=== PATIENT | female | born 1965 | race Caucasian/White ===

== ENCOUNTER 2021-06-09 14:19 | Outpatient (REF) | payer MEDICAID, SELFPAY ==
--- NOTE | 2021-06-09 14:31 | ECG_ITS ---
Test Reason : med therapy, r/o prolong qt Blood Pressure : / mmHG Vent. Rate : 057 BPM Atrial Rate : 057 BPM P-R Int : 166 ms QRS Dur : 082 ms QT Int : 440 ms P-R-T Axes : 011 -03 028 degrees QTc Int : 428 ms Sinus bradycardia Low voltage QRS Cannot r/o Inferior infarct , age undetermined - could be normal variant Cannot rule out Anterior infarct , age undetermined - could be from lead placement/body habitus Borderline ECG No previous ECGs available Referred By: Sindi Hernandez Electronically Signed By:ALKA GRAHAM
[2021-06-09 15:37] LABS: Anion Gap 13 (12-20); Blood Urea Nitrogen 17 mg/dL (9-16); Calcium 9.8 mg/dL (8.4-10.2); Carbon Dioxide 26 mmol/L (22-29); Chloride 106 mmol/L (96-108); Estimated Glomerular Filt Rate 45; Glucose Random 62 mg/dL (60-115); Potassium 4.2 mmol/L (3.3-5.1); Sodium 141 mmol/L (135-145)
[2021-06-09 15:40] LABS: Amphetamine Screen Urine Not Detected (Not Detect); Barbiturates, Urine Not Detected (Not Detect); Benzodiazepines Screen Urine POSITIVE (Not Detect); Cannabinoid Screen Urine Not Detected (Not Detect); Cocaine Screen Urine Not Detected (Not Detect); Fentanyl, urine Not Detected (Not Detect); Opiate Screen Urine Not Detected (Not Detect); Phencyclidine Screen Urine Not Detected (Not Detect)
== END 2021-06-09 14:20 | disposition home or self-care (01) ==
LOC: HO.LAB 14:19
PROVIDERS: PCP Nurse Practitioner Family; Visit Provider Nurse Practitioner Psychiatric/Mental Health
DX: F41.1 Generalized anxiety disorder (principal); F33.2 Major depressive disorder, recurrent severe without psychotic features
CPT/HCPCS: 80048; 80307; 93005

== ENCOUNTER 2021-06-22 10:45 | Outpatient (RCR) | payer OTHER, SELFPAY ==
[2021-06-01 11:22] VITALS: BMI 27.4
--- NOTE | 2021-06-01 11:47 | PC.ADMIT ---
Patient is a 56 year old female who was referred by [facility] Crisis d/t struggling with increased depression and anxiety sxs. 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 Patient is alert and oriented x4. Presents with depressed mood, very anxious affect. Denied SI. Asked who she could call if she felt unsafe and she stated her therapist. Patient has the crisis number if needed. Medication reconciled with patient's phamracy and patient. Patient reports taking medications as prescribed.
--- NOTE | 2021-06-01 14:56 | PC.NURSE ---
Case opened in treatment team
--- NOTE | 2021-06-01 15:37 | P.HPPSP_ITS ---
[facility] Date of Service: 06/01/21 Chief Complaint: Major Depressive D/o, Generalized Anxiety D/o Sources of Information: patient interviewed, chart reviewed and crisis/core team assessment reviewed [facility] Guardianship: No Medical Problems Affecting Mental Status: No Narrative: Ms. Lopez is a 56-year-old female referred to [facility] by [facility] crisis due to increased symptoms of anxiety and depression. She lives with a s ignificant other, and has 1 adult daughter that lives in [place]. She describes relationships with them as supportive. She describes a precipitant as losing a job this past month, on her birthday. She reports a long history of anxiety and depression, and states that she started seeing a therapist around the age of 17-18. She states that she has been in therapy ever since that time, with various therapists over the years. Medication Trials: Reports multiple medication trials over the years, does not remember the names of most medications. Ativan in the past with poor effect. Xanax in the past with poor effect. Wellbutrin for a while, but that stopped working. Trazodone years ago for sleep. Grew up with both parents and 4 brothers, she was the 4th oldest. Reports there was a lot of tension and financial problems in the household as a child. Describes her relationship with her siblings at this time as supportive. Reports that she met developmental milestones as appropriate, graduated high school, community college, and then received her bachelor's degree. Denies any symptoms of bipolar disorder. Endorses symptoms of depression including feeling sad, and only a, tearful at times, hopelessness, helplessness, guilt, anxiety. She has had multiple psychiatric admissions and previous suicide attempts by overdose and cutting. She denies any suicidal ideation today. Client reports that she has suffered from alcohol use disorder for many years, with various amounts of sobriety throughout the years. She reports that currently she has been sober for 5 years. She reports she has a strong support network in , and attends meetings. She is hoping to gain new coping skills while in [facility], and is willing to discuss possible medication changes. Past Psychiatric History: Has psychiatric provider, Zeina Rojas, CLINICAL RESOURCE COORDINATOR Has therapist, Miah Hodges. Two previous IPLOC due to SI attempts. Multiple PHP programs in past. Several DUIs in past. Medical Evaluation Reviewed: Yes [facility] Medical History Back spasm Chronic urinary tract infection History of kidney stones Perforated ulcer Ureteral reflux Surgical History History of delivery Family History: Maternal grandmother: Delusional disorder, sectioned to [facility]. Paternal grandmother: Bipolar I disorder. Father: Depression, possible PTSD (from war). Brother: Multiple SI attempts with alcohol and pills, AUD, currently sober. Social History: Raised by both parents, has 4 brothers. Reports poverty as a child, tense household. Currently unemployed. Lives with significant other of 3 years. One adult daughter, lives out of home. Met all developmental milestones, graduated high school, associated degree, bachelor degree. Substance History: Longstanding history of alcohol use disorder with relapses. Currently sober x5 years, active in AA. Trauma History: None Diagnostics Vital Signs (24Hr): Body Mass Index 27.4 Meds/Allergies Allergies Allergies Allergy/AdvReac Type Severity Reaction Status Date / Time sulfamethoxazole Allergy Unknown Verified 06/01/21 11:26 [From Bactrim] trimethoprim [From Bactrim] Allergy Unknown Verified 06/01/21 11:26 Mental Status Exam Mental Status Exam Narrative: Well-developed, well-nourished female, in NAD. No involuntary movements noted, motor activity calm, posture within normal limits. Fully attentive during encounter. Patient Appearance: Well Grooomed, Fatigued and Appropriate Patient Orientation: Person, Place, Time and Situation Level of Consciousness: Awake, Appropriate and Alert Patient Behavior: Appropriate, Cooperative, Anxious, Good Eye Contact and Crying (tearful at times) Mood Description: Appropriate, Depressed and Anxious Affect Description: Appropriate, Depressed, Anxious, Labile and Sad Ability to Follow Directions: Excellent Speech Pattern: Clear, Spontaneous Speech and Coherent Memory Description: Intact Hallucinations: None Delusions: Not Present Thought Process: Intact, Goal Oriented and Linear Thought Content: positive for Intact, positive for Preoccupation (Highly focused on feel signs of anxiety, feeling overwhelmed.) and positive for Suicidal Ideation (Has had recent SI, denies today. ) Depressive Symptoms: Increased Anxiety, Diff. Making Decisions, Increased Irri tability, Difficulty Sleeping (difficulty falling asleep), Muscle Pain, Sleeping More Than Usual, Loss of Int. in Activity, Feelings of Worthlessness, Hopelessness, Isolating-Friends/Family, Feelings of Guilt, Unhappiness, Increased Fatigue, Thoughts of /Suicide, Low Self Esteem, Loss of Energy and Difficulty Concentrating Judgement: Fair Telehealth Telehealth Location of provider rendering services: practice address Location of patient: address on file Patient Identification confirmed using: Name, : Yes Telehealth method: video Patient verbally consented to treatment: Yes Patient verbally consented to billing insurance company: Yes Patient informed of any privacy concerns related to visit: Yes Time spent with patient (mins): 45 Assessment & Plan Assessment & Plan (1) Major depressive disorder, recurrent, severe without psychotic features: Status: Acute Code(s): F33.2 - Major depressive disorder, recurrent severe without psychotic features Assessment and Plan: Client reports a longstanding history of major depressive disorder, 1st experiencing symptoms in [employer]. Attributes recent life stressors to exacerbation of symptoms over the past month. Denies SI at this time, no safety concern at this time. Client currently receives duloxetine 120 mg daily, as well as Seroquel 300 mg at bedtime. She believes these are helping, although she is feeling overwhelmed recently. She hopes to gain a sense of control and learn new coping skills while here. (2) MATTHEW (generalized anxiety disorder): Status: Acute Code(s): F41.1 - Generalized anxiety disorder Assessment and Plan: Client reports feeling overwhelmed, believes that her symptoms of anxiety are not being well managed at this point. She does utilize the propanolol as well as the Klonopin. We discussed other medication options, including adding p.r.n. Vistaril. She stated that she would be interested. (3) Alcohol use disorder, severe, in sustained remission: Status: Acute Code(s): F10.21 - Alcohol dependence, in remission Assessment and Plan: Client reports that she feels stable in her recovery from alcohol use at this time. She is active in a 12 step program, and attends regular meetings. She does not feel the need for any type of medication in order to assist with cravings at this time, as she feels stable. Assessment and Plan: 1. Obtain general Chem profile, PAZ, EKG. 2. Start hydroxyzine 50 mg 4 times daily p.r.n. for anxiety. One-week supply sent to pharmacy. 3. Follow-up as per protocol. Reason for continued partial hosp. stay Substantial Risk for: harm to self, inability to function and med/psych decompensation Certification I certify that partial hospital treatment is medically necessary due to the symptoms and problems resulting from the patient's mental illness and the failure to treat the patient at the partial hospital level of care would likely result in the patient requiring inpatient psychiatric care which could not be prevented at a less intensive level of care.
--- NOTE | 2021-06-08 13:38 | HO.PHPPROGNO ---
Subjective Subjective Date of Service: 06/08/21 Reason For Visit: Major Depressive D/o, Generalized Anxiety D/o Guardianship: No Medical Problems Affecting Mental Status: No Interim History: Ronit reports ?I am all right, I guess just pretty neutral today ?. Denies any thought of harm to self or others, no safety concern. Reports positive affect utilizing p.r.n. hydroxyzine for anxiety. Denied any side effects regarding the medication. Has not yet obtained lab work and EKG. Reports ongoing depressive symptoms, anxiety, although anxiety lessened with hydroxyzine. Ongoing alcohol use in remission. Medication Compliance: Yes Side effects from medications: No Attending Groups: Yes Review of Systems Acute medical concerns: No Medical Review of Systems: unchanged Review of Systems Review of Systems Yes all other systems are reviewed and are negative Constitutional: Reports no additional constitutional complaints Mental Status Exam Mental Status Exam Narrative: Well-developed, well-nourished female, in NAD. No involuntary movements noted, motor activity calm, posture within normal limits. Sitting up in chair, fully alert and attentive. Patient Appearance: Well Grooomed and Appropriate Patient Orientation: Person, Place, Time and Situation Level of Consciousness: Appropriate and Alert Patient Behavior: Appropriate, Cooperative, Anxious and Good Eye Contact Mood Description: Appropriate, Depressed and Anxious Affect Description: Appropriate, Depressed and Anxious (improved from last encounter, although still present.) Patient Cognition Impaired: No Ability to Follow Directions: Excellent Speech Pattern: Clear, Appropriate, Spontaneous Speech and Coherent Memory Description: Intact Hallucinations: None Delusions: Not Present Thought Process: Intact, Goal Oriented and Linear Thought Content: positive for Intact Depressive Symptoms: Increased Anxiety, Diff. Making Decisions, Muscle Pain, Loss of Int. in Activity, Feelings of Worthlessness, Hopelessness, Feelings of Guilt, Unhappiness, Increased Fatigue, Low Self Esteem, Loss of Energy and Difficulty Concentrating Judgement: Fair Diagnostics Vital Signs (24Hr): BMI result Body Mass Index 27.4 Assessment & Plan Assessment & Plan (1) Major depressive disorder, recurrent, severe without psychotic features: Status: Acute Code(s): F33.2 - Major depressive disorder, recurrent severe without psychotic features Assessment and Plan: Ronit reports ?I am all right, I guess just pretty neutral today ?. Denies any thought of harm to self or others, no safety concern. Continues with dysphoric mood. Taking prescribed antidepressants as ordered. (2) MATTHEW (generalized anxiety disorder): Status: Acute Code(s): F41.1 - Generalized anxiety disorder Assessment and Plan: Reports positive affect utilizing p.r.n. hydroxyzine for anxiety. Denied any side effects regarding the medication. Reports ongoing depressive symptoms, anxiety, although anxiety lessened with hydroxyzine. Describes having a difficult holiday with significant others family. Requesting new script for hydroxyzine. Has not yet obtained lab work and EKG. It was explained that hydroxyzine and Seroquel can both act to prolonged QTC interval, necessary to obtain a baseline EKG as well as labs. She was in agreement and stated that she will do this. (3) Alcohol use disorder, severe, in sustained remission: Status: Acute Code(s): F10.21 - Alcohol dependence, in remission Assessment and Plan: Kita denies any drinking over the holiday weekend. Reports it was difficult to be around her significant other's family as many of them drink. She states that most of her friends are in alcoholics anonymous, and that she called a friend and went to multiple meetings over the holiday weekend. She reports that this was extremely helpful for her. Assessment and Plan: 1. Hydroxyzine 50 mg q.i.d. p.r.n. for anxiety ordered, x1 week. 2. Client was asked to please obtain EKG as well as ordered labs, she stated that she would do so. 3. Follow-up as per protocol. Patient educated on: diagnosis, medication risk/benefits, substance abuse and therapeutic strategies Informed Consent: understands Reason for contiued partial hosp. stay Substantial Risk for: inability to function and med/psych decompensation Certification I certify that partial hospital treatment is medically necessary due to the symptoms and problems resulting from the patient's mental illness and the failure to treat the patient at the partial hospital level of care would likely result in the patient requiring inpatient psychiatric care which could not be prevented at a less intensive level of care. I spent minutes with the patient and/or on the patient floor today, greater than?50% of which was spent counseling/coordinating care. Discharge Plan Discharge Attending provider: Richie Hull Primary Care Provider: Lynette Gabriel Medications: New hydroxyzine pamoate [Vistaril] 50 mg capsule 50 mg PO QID PRN (Reason: anxiety) 7 Days Qty: 28 RF: 0 No Action quetiapine [Seroquel] 300 mg Tablet 300 mg PO BEDTIME RF: 0 clonazepam 1 mg Tablet 1 mg PO TID PRN (Reason: Anxiety) RF: 0 methenamine hippurate 1 gram Tablet 1 g PO BID RF: 0 propranolol 20 mg Tablet 20 mg PO TID RF: 0 duloxetine 60 mg Capsule,Delayed Release(Dr/Ec) 120 mg PO DAILY RF: 0 Referrals: Lynette Gabriel NP [Primary Care Provider] - 1 Week Telehealth Telehealth Location of provider rendering services: practice address Location of patient: address on file Patient Identification confirmed using: Name, : Yes Telehealth method: video Patient verbally consented to treatment: Yes Patient verbally consented to billing insurance company: Yes Patient informed of any privacy concerns related to visit: Yes Time spent with patient (mins): 20
--- NOTE | 2021-06-14 11:00 | PC.NURSE ---
Faxed patient's abnormal lab and EKG results to patient's PCP Lynette Gabriel on 06/13/21 to review and request f/u appointment if needed by PCP. EGFR 45, Bun 17. EKG results -Sinus Bradycardia, low voltage QRS Cannot r/o anterior/Inferior infarct age undetermined-could be a normal variant or caused by lead placement. Called Lynette Gabriel's office on 06/14/21 requesting to speak to a nurse to confirm that they received the results and to review results along with any necessary f/u appointment. Spoke to Tatum from the call center who relayed the message. Awaiting a call back from a nurse to f/u.
--- NOTE | 2021-06-15 15:34 | P.PNPSP_ITS ---
Subjective Subjective Date of Service: 06/15/21 Reason For Visit: Major Depressive D/o, Generalized Anxiety D/o Guardianship: No Medical Problems Affecting Mental Status: No Interim History: Client reports she ?is feeling a little anxious today ?. Also continues with some dysphoric mood, although symptoms of depression have improved somewhat. Client has been utilizing the p.r.n. Vistaril, and has found it helpful when feeling overwhelmed and anxious. She also continues with other scheduled medications, including Seroquel, propanolol, duloxetine, clonazepam, andmethenamine hippurate. Denies any side effects or adverse reactions. Client reports continues with some fleeting passive SI, although she now looks back at her plan to complete a suicide before coming into [facility], and states that she now knows that plan was ?ludicrous ?. Denies any type of plan or intent to harm herself, no safety concern at this time. Medication Compliance: Yes Side effects from medications: No Attending Groups: Yes Review of Systems Acute medical concerns: No Medical Review of Systems: unchanged Review of Systems Review of Systems Yes all other systems are reviewed and are negative Constitutional: Reports no additional constitutional complaints Mental Status Exam Mental Status Exam Narrative: Well-developed, well-nourished female, in NAD. No involuntary movements noted, motor activity calm, posture within normal limits. Patient Appearance: Well Grooomed and Appropriate Patient Orientation: Person, Place, Time and Situation Level of Consciousness: Appropriate and Alert Patient Behavior: Appropriate, Cooperative, Anxious and Good Eye Contact Mood Description: Appropriate, Depressed and Anxious Affect Description: Appropriate, Depressed and Anxious Patient Cognition Impaired: No Ability to Follow Directions: Excellent Speech Pattern: Clear, Appropriate, Spontaneous Speech and Coherent Memory Description: Intact Hallucinations: None Delusions: Not Present Thought Process: Intact, Goal Oriented and Linear Thought Content: positive for Intact and positive for Suicidal Ideation (fleeting passive, no intent/plan. Reports much improved since start of [facility]) Depressive Symptoms: Increased Anxiety, Diff. Making Decisions, Loss of Int. in Activity, Feelings of Worthlessness, Hopelessness, Isolating-Friends/Family, Feelings of Guilt, Unhappiness, Thoughts of /Suicide (fleeting passive at times, no intent/plan), Low Self Esteem, Loss of Energy and Difficulty Concentrating Judgement: Fair Diagnostics Vital Signs (24Hr): BMI result Body Mass Index 27.4 Assessment & Plan Assessment & Plan (1) Major depressive disorder, recurrent, severe without psychotic features: Status: Acute Code(s): F33.2 - Major depressive disorder, recurrent severe without psychotic features Assessment and Plan: Client continues with some dysphoric mood. Has had fleeting SI, no intent, no plan. No safety concern at this time. Reports looking back at her plans to to jump off a speedy prior to starting PHP. She states that she now sees at that plan was ?ludicrous ?, and that she would not harm herself. States that she feels current medication regimen is helping to improve mood, as well as daily participation in PHP. (2) MATTHEW (generalized anxiety disorder): Status: Acute Code(s): F41.1 - Generalized anxiety disorder Assessment and Plan: Client continues with some anxiety. Describes feeling nervous, on edge, unable to stop or control excessive worry. She has had trouble relaxing, with some restlessness, and irritability. She has been unable to exercise like she usually does, which has made her symptoms worse. She reports that her significant other had filed to have her evicted from the home, which caused her great distress. She later stated that he has informed her he will retracted, and that they have been attempting to work out their problems. She states that she has difficulty with interpersonal relationships, and is working on this. (3) Alcohol use disorder, severe, in sustained remission: Status: Acute Code(s): F10.21 - Alcohol dependence, in remission Assessment and Plan: Client reports she has continued to abstain from alcohol use. Reports that her recovery program is going well. She reports that she will be receiving her 5 year sobriety coin on 07/09/2021. Discussed using principles of the AA program in order to help assist with interpersonal relationships and coping. Assessment and Plan: 1. Continue current medication regimen as prescribed. 2. Refill of hydroxyzine 50 mg 4 times daily p.r.n. for anxiety, 30 day supply sent to pharmacy. 3. Follow-up as per protocol. Patient educated on: diagnosis, medication risk/benefits, substance abuse and therapeutic strategies Informed Consent: understands Reason for contiued partial hosp. stay Substantial Risk for: inability to function and med/psych decompensation Certification I certify that partial hospital treatment is medically necessary due to the symptoms and problems resulting from the patient's mental illness and the failure to treat the patient at the partial hospital level of care would likely result in the patient requiring inpatient psychiatric care which could not be prevented at a less intensive level of care. I spent minutes with the patient and/or on the patient floor today, greater than?50% of which was spent counseling/coordinating care. Discharge Plan Discharge Attending provider: Richie Hull Primary Care Provider: Lynette Gabriel Medications: New hydroxyzine pamoate [Vistaril] 50 mg capsule 50 mg PO QID PRN (Reason: anxiety) Qty: 120 RF: 0 No Action quetiapine [Seroquel] 300 mg Tablet 300 mg PO BEDTIME RF: 0 clonazepam 1 mg Tablet 1 mg PO TID PRN (Reason: Anxiety) RF: 0 methenamine hippurate 1 gram Tablet 1 g PO BID RF: 0 propranolol 20 mg Tablet 20 mg PO TID RF: 0 duloxetine 60 mg Capsule,Delayed Release(Dr/Ec) 120 mg PO DAILY RF: 0 Referrals: Lynette Gabriel, CMA OR LPN [Primary Care Provider] - 1 Week Telehealth Telehealth Location of provider rendering services: practice address Location of patient: address on file Patient Identification confirmed using: Name, : Yes Telehealth method: video Patient verbally consented to treatment: Yes Patient verbally consented to billing insurance company: Yes Patient informed of any privacy concerns related to visit: Yes Time spent with patient (mins): 15
--- NOTE | 2021-06-20 11:12 | PC.NURSE ---
Patient's PCP Lynette Gabriel NP left a message on my Voice Mail confirming she did get patients Lab and EKG results.
--- NOTE | 2021-06-22 09:46 | PC.NURSE ---
Patient scheduled to discharge fro the program today. Reviewed patient medications with patient. Patient reports taking medications as prescribed. Medication Education provided. Patient apprehensive regarding discharge however is going to try and take the skills she learned and implement them into daily routine. No Safety Concerns, No SI.
--- NOTE | 2021-06-22 13:20 | HO.PHPPROGNO ---
Subjective Subjective Date of Service: 06/22/21 Reason For Visit: Major Depressive D/o, Generalized Anxiety D/o Guardianship: No Medical Problems Affecting Mental Status: No Interim History: Reports feeling pretty anxious, a little shaky . Reports feeling anxious about finishing program today, wants to make sure she continues with structure in her day. No SI, no safety concerns. The continues to maintain abstinence regarding alcohol. Medication Compliance: Intermittent (Patient has been changing dosage schedule of medications. ) Side effects from medications: Yes ( shaky , she reports has been taking tid propanolol all in am daily) Attending Groups: Yes Review of Systems Acute medical concerns: No Medical Review of Systems: unchanged Review of Systems Review of Systems Yes all other systems are reviewed and are negative Constitutional: Reports no additional constitutional complaints Eyes: Reports no additional eye complaints Reports system reviewed and no additional complaints, except as documented Cardiovascular: Reports other (Reported feeling shaky.) Comments: Client reported that she has been taking all 3 doses of her propanolol in the mornings at once rather than spreading it out throughout the day as ordered. Respiratory: Reports no additional respiratory complaints Mental Status Exam Mental Status Exam Narrative: Well-developed, well-nourished female, in NAD. No involuntary movements noted, motor activity calm, posture within normal limits. Patient Appearance: Well Grooomed and Appropriate Patient Orientation: Person, Place, Time and Situation Level of Consciousness: Appropriate and Alert Patient Behavior: Appropriate, Cooperative, Anxious and Good Eye Contact Mood Description: Appropriate and Anxious Affect Description: Appropriate and Anxious Patient Cognition Impaired: No Ability to Follow Directions: Excellent Speech Pattern: Clear, Appropriate, Spontaneous Speech and Coherent Memory Description: Intact Hallucinations: None Delusions: Not Present Thought Process: Intact, Goal Oriented and Linear Thought Content: positive for Intact Depressive Symptoms: Increased Anxiety, Diff. Making Decisions, Loss of Int. in Activity, Unhappiness, Low Self Esteem and Difficulty Concentrating Judgement: Good Diagnostics Vital Signs (24Hr): BMI result Body Mass Index 27.4 Assessment & Plan Assessment & Plan (1) MATTHEW (generalized anxiety disorder): Status: Acute Code(s): F41.1 - Generalized anxiety disorder Assessment and Plan: Client continues with anxiety today. Reports that she believes it is because today is her last day, and she is worried about losing the daily structure. We discussed ways to continue structure in her daily day. She has plans with her mother tomorrow, and then will be going to visit her stay daughter in [place] on Sunday. She is active in 12 step groups, although not lately as much. We discussed getting more active in her groups, including doing Service work for them, etc., as a way to increase structure. She stated that she has been considering this, and may do so. Reports the p.r.n. hydroxyzine is working well. However, she reports that she has been taking it as 100 mg b.i.d. rather than 50 mg 4 times daily p.r.n.. She also reports that she has been taking propanolol 60 mg in the mornings rather than 20 mg t.i.d.. Education was provided, and patient was encouraged to take medications as prescribed. (2) Major depressive disorder, recurrent, severe without psychotic features: Status: Acute Code(s): F33.2 - Major depressive disorder, recurrent severe without psychotic features Assessment and Plan: Client reports depressive symptoms have improved while participating in [facility]. She states that today her main concern is anxiety. She states though that when she gets anxious for a long period of time, it slipped into a depressive state. We discussed relapse prevention strategies to help prevent this from happening. No SI, no safety concerns. (3) Alcohol use disorder, severe, in sustained remission: Status: Acute Code(s): F10.21 - Alcohol dependence, in remission Assessment and Plan: Client remains abstinent from alcohol. Denies any cravings at this time. States that she plans to get more active in 12 step recovery, including [facility] as well as AA. Assessment and Plan: 1. Client appears stable for discharge from [facility]. 2. Client to follow up with outpatient providers going forward. Patient educated on: diagnosis, medication risk/benefits, substance abuse and therapeutic strategies Informed Consent: understands Reason for contiued partial hosp. stay Substantial Risk for: stable for discharge Certification I certify that partial hospital treatment is medically necessary due to the symptoms and problems resulting from the patient's mental illness and the failure to treat the patient at the partial hospital level of care would likely result in the patient requiring inpatient psychiatric care which could not be prevented at a less intensive level of care. I spent minutes with the patient and/or on the patient floor today, greater than?50% of which was spent counseling/coordinating care. Discharge Plan Discharge Attending provider: Richie Hull Primary Care Provider: Lynette Gabriel Medications: New hydroxyzine pamoate [Vistaril] 50 mg capsule 50 mg PO QID PRN (Reason: anxiety) Qty: 120 RF: 0 No Action quetiapine [Seroquel] 300 mg Tablet 300 mg PO BEDTIME RF: 0 clonazepam 1 mg Tablet 1 mg PO TID PRN (Reason: Anxiety) RF: 0 methenamine hippurate 1 gram Tablet 1 g PO BID RF: 0 propranolol 20 mg Tablet 20 mg PO TID RF: 0 duloxetine 60 mg Capsule,Delayed Release(Dr/Ec) 120 mg PO DAILY RF: 0 Referrals: Lynette Gabriel NP [Primary Care Provider] - 1 Week Stand Alone Forms: Patient Portal Discharge page Telehealth Telehealth Location of provider rendering services: practice address Location of patient: address on file Patient Identification confirmed using: Name, : Yes Telehealth method: video Patient verbally consented to treatment: Yes Patient verbally consented to billing insurance company: Yes Patient informed of any privacy concerns related to visit: Yes Time spent with patient (mins): 15
== END 2021-06-23 07:11 | disposition home or self-care (01) ==
LOC: HO.PHPA 10:45
PROVIDERS: PCP Nurse Practitioner Family; Visit Provider Psychiatry & Neurology Psychiatry
DX: F33.2 Major depressive disorder, recurrent severe without psychotic features (principal); F41.1 Generalized anxiety disorder; F10.21 Alcohol dependence, in remission; Z79.899 Other long term (current) drug therapy
CPT/HCPCS: 90791; 90853